=== PATIENT | male | born 1980 | race Caucasian/White ===

== ENCOUNTER 2016-05-26 13:31 | Emergency (ER) | payer MEDICAID, OTHER ==
[~2016-05-26] VITALS: Ht 180.3 cm; Wt 106.0 kg
[2016-05-26 14:04] VITALS: BP 150/93; PULSE 101; RESP 16; TEMP 98.8; O2SAT 99
--- NOTE | 2016-05-26 15:42 | PD ---
HPI Chief Complaint: Complaint Time Seen by Provider: 15:30 Travel History International Travel<30 days: No Contact w/Intl Traveler<30days: No Traveled to known affect area: No History of Present Illness HPI The patient is a 35-year-old male who presents to the emergency department for right testicular pain. The patient notes a three-day history of right testicular pain, cannot recall any trauma to the affected area. The pain is located this year aspect the right testicle and radiates up into the right inguinal canal. He denies any swelling of the affected area. He denies any known trauma to the affected area. He denies any associated dysuria, frequency , urgency, hematuria, or penile discharge. He denies any known history of epididymitis or testicular torsion. He denies any associated hematuria ordered history of nephrolithiasis. Symptoms are moderate, there are no known alleviating or exacerbating factors. [facility] Past Medical History Medical History: Denies Significant Hx Influenza Vaccination: No Past Surgical History Surgical History: No Previous Surgery Social History Alcohol Use: No Tobacco Use: No Substance Use: No Allergies-Medications (Allergen,Severity, Reaction): Coded Allergies: No Known Allergies (Unverified , 05/26/16) Reported Meds & Prescriptions Reported Meds & Active Scripts Active No Active Prescriptions or Reported Medications Review of Systems Except as stated in HPI: all other systems reviewed are Neg General / Constitutional: No: Fever Gastrointestinal: No: Nausea, Vomiting, Abdominal Pain Genitourinary: Positive: Other (right testicular pain as aforementioned), No: Urgency, Frequency, Dysuria, Hematuria Skin: No Rash Physical Exam Narrative GENERAL: Awake, alert, pleasant 35-year-old male who appears his stated age and is in no acute respiratory distress. SKIN: Warm and dry. HEAD: Atraumatic. Normocephalic. EYES: Pupils equal and round. No scleral icterus. No injection or drainage. ENT: No nasal bleeding or discharge. Mucous membranes pink and moist. NECK: Trachea midline. No JVD. GASTROINTESTINAL: Abdomen soft, non-tender, nondistended. No rebound tenderness. Back: No CVA tenderness. Genitourinary: Circumcised phallus. Both testicles are descended. Mild tenderness of the superior aspect of the right testicle and inferior epididymis. No hernia noted in the left or right inguinal canal. MUSCULOSKELETAL: No obvious deformities. No clubbing. No cyanosis. No edema. NEUROLOGICAL: Awake and alert. No obvious cranial nerve deficits. Motor grossly within normal limits. Normal speech. PSYCHIATRIC: Appropriate mood and affect; insight and judgment normal. Data Data Last Documented VS Vital Signs Date Time Temp Pulse Resp B/P Pulse Ox O2 Delivery O2 Flow Rate FiO2 05/26/16 16:22 91 18 144/81 99 Room Air 05/26/16 14:04 98.8 Orders Urinalysis - C+S If Indicated (05/26/16 15:35) Gc And Chlamydia Pcr (05/26/16 15:35) Us Testicles W Doppler (05/26/16 15:35) Labs Laboratory Tests Test 05/26/16 16:00 Urine Collection Type CLEAN CATCH Urine Color YELLOW Urine Turbidity CLEAR Urine pH 6.0 Urine Specific [place] 1.010 Urine Protein NEG mg/dL Urine Glucose (UA) NEG mg/dL Urine Ketones NEG mg/dL Urine Occult Blood TRACE Urine Nitrite NEG Urine Bilirubin NEG Urine Leukocyte Esterase NEG Urine RBC 0-3 /hpf Urine Squamous Epithelial 0-5 /hpf Cells Microscopic Urinalysis Comment CULT NOT INDICATED Urine Collection Time 16:00 [facility] Medical Decision Making Medical Screen Exam Complete: Yes Emergency Medical Condition: Yes Medical Record Reviewed: Yes Interpretation(s) Ultrasound of the testicle reveals no testicular masses. Positive testicular blood flow bilaterally. Small right sided epididymal cyst. Laboratory Tests Test 05/26/16 16:00 Urine Collection Type CLEAN CATCH Urine Color YELLOW Urine Turbidity CLEAR Urine pH 6.0 Urine Specific [place] 1.010 Urine Protein NEG mg/dL Urine Glucose (UA) NEG mg/dL Urine Ketones NEG mg/dL Urine Occult Blood TRACE Urine Nitrite NEG Urine Bilirubin NEG Urine Leukocyte Esterase NEG Urine RBC 0-3 /hpf Urine Squamous Epithelial 0-5 /hpf Cells Microscopic Urinalysis Comment CULT NOT INDICATED Urine Collection Time 16:00 Differential Diagnosis Differential diagnosis includes epididymitis, epididymal cyst, varicocele, hydrocele, testicular cancer, testicular torsion, complicated UTI, orchitis. Narrative Course Ultrasound of the testicles was ordered. UA was sent to lab with gonorrhea and chlamydia PCR. Diagnosis Primary Impression: Epididymal cyst Additional Impression: Testicular pain, right Patient Instructions: General Instructions Additional Instructions: Please provide the patient a copy of his ultrasound results and UA results at discharge. Pain medications as directed. Follow-up with urology if symptoms persist. Med/Other Pt SpecificInfo: Prescription(s) given Scripts Hydrocodone-Acetaminophen (Pyote)5-325 mg Tab1 Tab PO Q6H PRN (PAIN) #15 TAB Ref 0 Prov:Edmar Myers MD 05/26/16 Ibuprofen 600 Mg [id number] Mg PO Q6H PRN (Pain/Inflammation) #20 TAB Ref 0 Prov:Edmar Myers MD 05/26/16 Disposition: 01 DISCHARGE HOME Condition: Stable Edmar Myers MD May 26, 2016 15:42
[2016-05-26 16:05] LABS: BLOOD, URINE TRACE (NEG); GLUCOSE,URINE NEG (NEG); KETONE, URINE NEG (NEG); NITRITE,URINE NEG (NEG)
[2016-05-26 16:08] LABS: METHOD OF COLLECTION CLEAN CATCH; URINE COLOR YELLOW (YELLW/STRAW)
[2016-05-26 16:10] LABS: COMMENT (UR) CULT NOT INDICATED; CULTURE IF INDICATED CULT NOT INDICATED; RBC, URINE 0-3 /hpf (0-3); SQUAMOUS EPITHELIAL CELL URINE 0-5 /hpf (0-5)
[2016-05-26 16:22] VITALS: BP 144/81; PULSE 91; RESP 18; O2SAT 99
--- NOTE | 2016-05-26 17:12 | RADHPO ---
EXAM DATE/TIME: 05/26/2016 15:44 [place] COMPARISON: No previous studies available for comparison. INDICATIONS : Testicle pain. MEDICAL HISTORY : Testicle pain. SURGICAL HISTORY : None. ENCOUNTER: Initial ACUITY: 1 day PAIN SCORE: 4/10 LOCATION: Bilateral testicles. MEASUREMENTS: RIGHT TESTICLE: 3.9 x 2.3 x 3.2cm LEFT TESTICLE: 3.7 x 2.1 x 3.1 cm FINDINGS: There is positive blood flow to both testicles. Small cysts identified in the right epididymal head. Small bilateral hydroceles. Echogenic non-shadowing foci noted in the upper left scrotum measuring 3 mm, probably small calcifications.. CONCLUSION: 1. No testicular masses. Positive testicular blood flow bilaterally. Small right-sided epididymal cys t. Jimi León MD on May 26, 2016 at 16:56 Board Certified Radiologist. This report was verified electronically.
[2016-05-26] MEDS ORDERED: NORC5TAB PO (17:19)
[2016-05-26] MEDS ORDERED: IBUP-232 PO (17:19)
[2016-05-26 17:36] VITALS: BP 158/76
[2016-05-26 19:11] LABS: CHLAMYDIA PCR NOT DETECTED (NOT DETECT); NEISSERIA PCR NOT DETECTED (NOT DETECT)
== END 2016-05-26 17:38 | disposition home or self-care (01) ==
LOC: PHED 13:31
DX: N50.3 Cyst of epididymis (principal); N50.811 Right testicular pain
CPT/HCPCS: 76870; 81001; 87491; 87591; 93975